=== PATIENT | female | born 1955 | race Caucasian/White ===

== ENCOUNTER 2016-05-29 19:48 | Inpatient (IN) | payer MEDICAID ==
[2016-05-29 20:50] VITALS: BP 115/55
[2016-05-29] MEDS ORDERED: Albuterol Nebulizer 2.5mg/3mL IH PRN (21:00)
[2016-05-29] MEDS ORDERED: Ipratropium Neb 0.5 mg/2.5 mL UD IH PRN (21:00)
[2016-05-29] MEDS ORDERED: guaiFENesin 200 MG/10 ML UDC PO PRN (21:00)
[2016-05-29] MEDS ORDERED: Metoclopramide 5 mg/mL 2mL Vial IVP PRN (21:06)
[2016-05-29] MEDS ORDERED: Scopolamine 1.5 mg/ 72 hr TDM TD SCH (21:15)
[2016-05-30] MEDS: D5-0.45NS 1,000 ML IV SCH ×3 (01:19→18:27)
[2016-05-30 07:29] LABS: % BASOPHILS 0.5 % (0.0-2.0); % EOSINOPHILS 0.9 % (0.0-5.0); % LYMPHOCYTES 37.5 % (20.0-50.0); % MONOCYTES 7.2 % (2.0-10.0); % NEUTROPHILS 53.9 % (40.0-80.0); HEMATOCRIT 34.3 % (35.0-45.0); HEMOGLOBIN 12.1 gm/dL (11.7-15.5); MEAN CORPUSCULAR HEMOGLOBIN 31.7 pg (27.0-31.0); MEAN CORPUSCULAR HGB CONC 35.2 pg (28.0-36.0); PLATELET COUNT 200 Th/cmm (150-400); RED BLOOD COUNT 3.81 Mil/cmm (3.80-5.10); RED CELL DISTRIBUTION WIDTH 11.9 % (11.5-20.0); WHITE BLOOD COUNT 5.6 Th/cmm (4.8-10.8)
[2016-05-30 07:46] LABS: ALB/GLOB RATIO 1.1 (1.0-1.8); ALKALINE PHOSPHATASE 40 U/L (34-104); ANION GAP 7.8 (7.0-16.0); BILIRUBIN,TOTAL 0.4 mg/dL (0.3-1.0); BUN - UREA NITROGEN 10 mg/dL (7-25); CALCIUM SERUM 8.5 mg/dL (8.6-10.3); CARBON DIOXIDE 24.7 mEq/L (21.0-31.0); CHLORIDE 107 mEq/L (98-107); CREATININE - SERUM 0.5 mg/dL (0.6-1.2); GLUCOSE 116 mg/dL (70-105); MAGNESIUM 2.2 mg/dL (1.9-2.7); POTASSIUM SERUM 3.5 mEq/L (3.5-5.1); SGOT 21 U/L (13-39); SGPT/ALT 14 U/L (7-52); SODIUM SERUM 136 mEq/L (136-145)
[2016-05-30 08:34] LABS: TSH 1.58 uIU/ml (0.34-5.60)
[2016-05-30 09:38] LABS: URINE BILIRUBIN NEGATIVE (NEGATIVE); URINE COLOR YELLOW; URINE GLUCOSE (UA) NEGATIVE (NEGATIVE); URINE KETONE TRACE mg/dL (NEGATIVE)
[2016-05-30 09:39] LABS: URINE BACTERIA NONE SEEN /hpf (NONE SEEN); URINE BLOOD NEGATIVE (NEGATIVE); URINE EPITHELIAL CELLS RARE /lpf (FEW); URINE PH 6.5; URINE PROTEIN NEGATIVE (NEGATIVE); URINE RBC NONE SEEN /hpf (0-5); URINE UROBILINOGEN 0.2 E.U./dL (0.2 - 1.0); URINE WBC 0-2 /hpf (0-5)
--- NOTE | 2016-05-30 12:53 | Diagnostic Imaging Report ---
Carotid ultrasound HISTORY: Stenosis COMPARISON: None Technique: Longitudinal and transverse sonographic sector images of the carotid arteries were obtained with doppler analysis. FINDINGS: Exam of the right side demonstrates mild generalized atherosclerotic vascular disease greatest within the carotid bulb. Exam of the left side demonstrates mild generalized atherosclerotic vascular disease, greatest within the carotid bulb. The velocity and velocity ratios are within normal limits. Antegrade vertebral artery flow is demonstrated bilaterally. IMPRESSION: Mild generalized atherosclerotic vascular disease. No evidence of hemodynamically significant stenosis.
--- NOTE | 2016-05-30 14:18 | Internal Medicine Prog Note ---
Internal Medicine Subjective - Subjective Service Date: 05/30/16 ([facility] [id number]) Internal Medicine Objective - Results Result Diagrams: 05/30/16 07:10 05/30/16 07:10 Recent Labs: Laboratory Last Values WBC 5.6 Th/cmm (4.8-10.8) 05/30/16 07:10 RBC 3.81 Mil/cmm (3.80-5.10) 05/30/16 07:10 Hgb 12.1 gm/dL (11.7-15.5) 05/30/16 07:10 Hct 34.3 % (35.0-45.0) L 05/30/16 07:10 MCV 90.0 fl (81-100) 05/30/16 07:10 MCH 31.7 pg (27.0-31.0) H 05/30/16 07:10 MCHC Differential 35.2 pg (28.0-36.0) 05/30/16 07:10 RDW 11.9 % (11.5-20.0) 05/30/16 07:10 Plt Count 200 Th/cmm (150-400) 05/30/16 07:10 MPV 8.0 fl 05/30/16 07:10 Neutrophils % 53.9 % (40.0-80.0) 05/30/16 07:10 Lymphocytes % 37.5 % (20.0-50.0) 05/30/16 07:10 Monocytes % 7.2 % (2.0-10.0) 05/30/16 07:10 Eosinophils % 0.9 % (0.0-5.0) 05/30/16 07:10 Basophils % 0.5 % (0.0-2.0) 05/30/16 07:10 Sodium 136 mEq/L (136-145) 05/30/16 07:10 Potassium 3.5 mEq/L (3.5-5.1) 05/30/16 07:10 Chloride 107 mEq/L (98-107) 05/30/16 07:10 Carbon Dioxide 24.7 mEq/L (21.0-31.0) 05/30/16 07:10 Anion Gap 7.8 (7.0-16.0) 05/30/16 07:10 BUN 10 mg/dL (7-25) 05/30/16 07:10 Creatinine 0.5 mg/dL (0.6-1.2) L 05/30/16 07:10 Est GFR ( Amer) > 60.0 ml/min 05/30/16 07:10 Est GFR (Non-Af Amer) > 60.0 ml/min 05/30/16 07:10 BUN/Creatinine Ratio 20.0 05/30/16 07:10 Glucose 116 mg/dL (70-105) H 05/30/16 07:10 Calcium 8.5 mg/dL (8.6-10.3) L 05/30/16 07:10 Magnesium 2.2 mg/dL (1.9-2.7) 05/30/16 07:10 Total Bilirubin 0.4 mg/dL (0.3-1.0) 05/30/16 07:10 AST 21 U/L (13-39) 05/30/16 07:10 ALT 14 U/L (7-52) 05/30/16 07:10 Alkaline Phosphatase 40 U/L (34-104) 05/30/16 07:10 Ammonia 53 umol/L (16-53) 05/30/16 07:10 Total Protein 6.8 gm/dL (6.0-8.3) 05/30/16 07:10 Albumin 3.6 gm/dL (3.7-5.3) L 05/30/16 07:10 Globulin 3.2 gm/dL 05/30/16 07:10 Albumin/Globulin Ratio 1.1 (1.0-1.8) 05/30/16 07:10 TSH 1.58 uIU/ml (0.34-5.60) 05/30/16 07:10 Urine Source CLEAN C 05/30/16 08:45 Urine Color YELLOW 05/30/16 08:45 Urine Clarity SL. CLOUDY (CLEAR) 05/30/16 08:45 Urine pH 6.5 05/30/16 08:45 Ur Specific [place] 1.010 (1.005-1.030) 05/30/16 08:45 Urine Protein NEGATIVE mg/dL (NEGATIVE) 05/30/16 08:45 Urine Glucose (UA) NEGATIVE mg/dL (NEGATIVE) 05/30/16 08:45 Urine Ketones TRACE mg/dL (NEGATIVE) 05/30/16 08:45 Urine Blood NEGATIVE (NEGATIVE) 05/30/16 08:45 Urine Nitrate NEGATIVE (NEGATIVE) 05/30/16 08:45 Urine Bilirubin NEGATIVE (NEGATIVE) 05/30/16 08:45 Urine Urobilinogen 0.2 E.U./dL (0.2 - 1.0) 05/30/16 08:45 Ur Leukocyte Esterase NEGATIVE (NEGATIVE) 05/30/16 08:45 Urine RBC NONE SEEN /hpf (0-5) 05/30/16 08:45 Urine WBC 0-2 /hpf (0-5) 05/30/16 08:45 Ur Epithelial Cells RARE /lpf (FEW) 05/30/16 08:45 Urine Bacteria NONE SEEN /hpf (NONE SEEN) 05/30/16 08:45 - Physical Exam Vitals and I&O: Vital Signs Temp 96.8 F 05/30/16 07:00 Pulse 82 05/30/16 07:00 Resp 18 05/30/16 07:00 BP 112/63 05/30/16 07:00 Pulse Ox 96 05/30/16 07:00 Intake & Output 05/29/16 05/30/16 05/30/16 18:59 06:59 18:59 Intake Total 746.667 Balance 746.667 Weight (lbs) 145 lb Intake: Intake, IV Amount 746.667 D5-0.45NS 1,000 ml @ 100 746.667 mls/hr IV .Q10H [facility] Rx#: [id number] Other: Stool Characteristics Soft Active Medications: Current Medications Acetaminophen (Tylenol) 650 mg PO Q4HR PRN PRN Reason: Pain or Fever >101 Stop: 07/28/16 20:59 Albuterol Sulfate (Albuterol 2.5mg/3ml Neb Ud) 2.5 mg IH Q2HR PRN PRN Reason: Shortness of Breath or Wheeze Stop: 07/28/16 20:59 Guaifenesin (Robitussin) 200 mg PO Q4HR PRN PRN Reason: Cough or Congestion Stop: 07/28/16 20:59 Heparin Sodium (Porcine) (Heparin) 5,000 units SUBQ Q12HR [facility] Stop: 07/28/16 20:59 Last Admin: 05/30/16 08:46 Dose: 5,000 units Dextrose/Sodium Chloride (D5-0.45ns) 1,000 mls @ 100 mls/hr IV .Q10H JERRI Stop: 07/28/16 20:59 Last Admin: 05/30/16 08:47 Dose: 100 mls/hr Ipratropium Johnston (Atrovent Neb 0.5mg/2.5ml) 0.5 mg IH Q2HR PRN PRN Reason: Shortness of Breath or Wheeze Stop: 07/28/16 20:59 Meclizine HCl (Antivert) 25 mg PO DAILY PRN PRN Reason: Nausea / Vomiting Stop: 07/28/16 20:59 Last Admin: 05/30/16 08:46 Dose: 25 mg Metoclopramide HCl (Reglan) 5 mg IVP Q4HR PRN PRN Reason: Dizziness Stop: 07/28/16 21:05 Ondansetron HCl (Zofran) 4 mg IV Q8H PRN PRN Reason: Nausea / Vomiting Stop: 07/28/16 20:59 Scopolamine (Transderm Scop Patch) 1 patch TD Q72H JERRI Stop: 07/28/16 21:14 Internal Medicine Assmt/Plan - Assessment Assessment: acute dizziness osteoporosis
--- NOTE | 2016-05-30 15:38 | History & Physical ---
CHIEF COMPLAINT: Dizziness. HISTORY OF PRESENT ILLNESS: This is a 60-year-old female who is a direct admission from [facility]. According to the patient, last night around 2:00 a.m., the patient stated that she woke up and she started to feel dizzy. The patient fell back asleep and woke up in the morning and she started vomiting and associated with dizziness. The patient denied any chest pain, any diarrhea, any abdominal pain. Due to insurance purposes, the patient is now here at [facility]. The patient had a CAT scan in [place] ____ and it was negative for any acute diseases. PAST MEDICAL HISTORY: Osteoporosis. PAST SURGICAL HISTORY: Cholecystectomy and ovarian cyst removal. ALLERGIES: No drug allergies. FAMILY HISTORY: Noncontributory. REVIEW OF SYSTEMS: GENERAL: Denies any fever, any chills. CARDIOVASCULAR: Denies any chest pain. RESPIRATORY: Denies any shortness of breath. GASTROINTESTINAL: Denies any nausea, vomiting at this time or any abdominal pain. GENITOURINARY: She denies any dysuria. All other systems are reviewed by me are negative. PHYSICAL EXAMINATION: GENERAL: The patient is well developed, well nourished, no acute distress. VITAL SIGNS: Temperature 96.8, heart rate 66, blood pressure 112/63, respirations 18, O2 95%. HEENT: Head; normocephalic, atraumatic. NECK: Supple. No mass. LUNGS: Clear bilaterally upon auscultation. HEART: Regular rate and rhythm. No murmurs or gallops. SKIN: Intact, warm and dry to touch. ABDOMEN: Soft, nontender, nondistended. Positive bowel sounds in all 4 quadrants. LABORATORY DATA: WBC 5.6, H and H 12.1 and 34.3, platelets of 200. Sodium 136, potassium ____, BUN 10, creatinine 0.5, albumin 3.6. DIAGNOSTICS: The patient had a carotid ultrasound and the impression is mild degenerative atherosclerotic vascular disease, no evidence of hemodynamically significant stenosis. PLAN: The patient to be admitted to the med/surg unit. The patient will have a consultation with Dr. Zuniga. We will monitor patient's electrolytes levels. Fall precautions will be initiated. PRN Zofran. We will continue to monitor the patient. JOB# [id number]
--- NOTE | 2016-05-30 23:56 | Admit Criteria Form ---
Admit Criteria Forms - Admit Criteria Diagnosis: DIZZINESS Clinical Indications for Admission to Inpatient Care (Place 'X' for any and all applicable criteria): Admission is indicated for ANY ONE of the following(1)(2)(3)(4): [ x]I. Inpatient admission required rather than observation care (Also use Dizziness: Observation Care as appropriate) because of ANY ONE of the following: [ ]a) Hemodynamic instability that is severe or persistent [ ]b) Signs or symptoms that are severe or persistent (eg, vomit, orthostasis, inability to ambulate) [ ]c) Cardiac arrhythmias of immediate concern [ ]d) Severe (new) neurologic findings requiring inpatient care as indicated by ANY ONE of the following(6)(7): [ ]1) Cerebral bleeding, ischemia, or vasospasm(8)(9) [ ]2) Increased intracranial pressure or hydrocephalus(10)(11)(12) [ ]3) Papilledema [ ]4) Cerebral edema [ ]5) Mass effect on CT scan [ ]e) Continuous IV infusion of anticoagulation, platelet inhibitor, vasoactive, or antiarrhythmic medication [ ]f) Cerebral bleeding, hydrocephalus, or vasospasm monitoring(14) [ ]g) Increased intracranial pressure or cerebral edema monitoring [ ]h) Vomiting that is severe or persistent [x ]i) Other condition, treatment or monitoring requiring inpatient admission [ ]II. A suspected etiology that requires admission for treatment [ ]III. Acute bacterial labyrinthitis [ ]IV. Cerebellar, brainstem, or cerebral ischemia or hemorrhage (5) Extended stay beyond goal length of stay may be needed for evaluating and treating a specific cause of dizziness, including(32) [ ]a) Head injury (Also use Traumatic Brain Injury, Nonsurgical Treatment guideline) [ ]b) New-onset vertebrobasilar vascular insufficiency [ ]c) Acute Meniere disease with intractable symptoms [ ]d) Cardiac arrhythmias or conduction defects [ ]e) Acute neurologic event causing dizziness [ ]f) Myocardial ischemia [ ]g) Acute bacterial labyrinthitis. [ ]h) Severe acute vestibular neuronitis The original [facility] [employer] content created by [facility] [employer] has been revised. The portions of the content which have been revised are identified through the use of italic text or in bold, and [facility] has neither reviewed nor approved the modified material. All other unmodified content is copyright [facility]. Please see references footnoted in the original [facility] edition 2016 Admit Criteria Met?: Yes
[2016-05-31] MEDS: D5-0.45NS 1,000 ML IV SCH (06:03)
[2016-05-31 07:33] LABS: % BASOPHILS 0.9 % (0.0-2.0); % EOSINOPHILS 1.9 % (0.0-5.0); % LYMPHOCYTES 38.7 % (20.0-50.0); % MONOCYTES 7.3 % (2.0-10.0); % NEUTROPHILS 51.2 % (40.0-80.0); HEMOGLOBIN 12.8 gm/dL (11.7-15.5); MEAN CELL VOLUME 91.6 fl (81-100); MEAN CORPUSCULAR HEMOGLOBIN 31.6 pg (27.0-31.0); MEAN CORPUSCULAR HGB CONC 34.5 pg (28.0-36.0); MEAN PLATELET VOLUME 8.1 fl; NEUTROPHILE ABSOLUTE 2.4 Th/cmm (1.8-8.0); PLATELET COUNT 197 Th/cmm (150-400); RED BLOOD COUNT 4.03 Mil/cmm (3.80-5.10); RED CELL DISTRIBUTION WIDTH 12.3 % (11.5-20.0); WHITE BLOOD COUNT 4.6 Th/cmm (4.8-10.8)
[2016-05-31 07:54] LABS: BUN - UREA NITROGEN 10 mg/dL (7-25); BUN/CREATININE RATIO 16.7; CALCIUM SERUM 8.6 mg/dL (8.6-10.3); CARBON DIOXIDE 24.6 mEq/L (21.0-31.0); CHLORIDE 109 mEq/L (98-107); CREATININE - SERUM 0.6 mg/dL (0.6-1.2); GLUCOSE 111 mg/dL (70-105); POTASSIUM SERUM 3.6 mEq/L (3.5-5.1); SODIUM SERUM 137 mEq/L (136-145)
--- NOTE | 2016-05-31 10:14 | Consultation ---
HISTORY OF PRESENT ILLNESS: The patient is a 60-year-old. The patient complains of dizziness for the last couple of days. The patient had complained, got up and felt that the patient vision was not clear, was not exactly diplopia, but was slanted to one side. She tried to get up. She was wearing off to one side. She felt severe dizziness and then she started having nausea, vomiting. The vision seems to be better, although she still feels when she tries to get that she would tend to wear off to one side. She feels dizziness ____ with movement, otherwise, while in bed, not too bad. Not much episodes of dizziness in the past. No marked weakness on one side or the other. Some numbness in the face, better. PAST MEDICAL HISTORY: The patient is otherwise generally healthy, no other major medical problems. She has osteoporosis. PAST SURGICAL HISTORY: Gallbladder, ovarian cyst. ALLERGIES: None known. REVIEW OF SYSTEMS: On questioning, a 12-point negative except for above. PHYSICAL EXAMINATION: VITAL SIGNS: Temperature 98.2, blood pressure 120/67, pulse is around about 68. NECK: Supple. No bruits. HEART: Sounds S1, S2. LUNGS: Clear. ABDOMEN: Soft. NEUROLOGIC: The patient awake, alert. She speaks Albanian, family by the bedside. CRANIAL: Pupils react to light. Full eye movement. No nystagmus. Slight endpoint, may be looking to the right and left. Face normal. MOTOR: She will lift both arms up. [id number] is okay. The patient's gait not tested. Reflexes are 1-2+. INVESTIGATIONS: Apparently, CT scan was reported to be negative. Carotid ultrasound showed some plaquing, but no stenosis. IMPRESSION: Vertigo. Differential, vestibular versus [employer]. In view of some symptoms, especially with some visual complaints initially ataxia, I am going to go ahead and do an MRI of the brain. Treat vertigo symptomatically. JOB# [id number]
[2016-05-31 10:18] LABS: FOLIC ACID >20.0 ng/mL (>3.0)
--- NOTE | 2016-05-31 12:40 | Diagnostic Imaging Report ---
MRI Brain without intravenous Contrast Indication: Ataxia, vertigo Comparison: none Technique: Multiplanar T1, T2, FLAIR, GRE and diffusion weighted images of the brain were obtained without intravenous contrast.. Findings: Images of the brain obtained without contrast demonstrate no evidence of an acute hemorrhage. There is no evidence of restricted diffusion to suggest acute infarction. Minimal white matter disease is noted. The ventricles and basal cisterns are patent. No mass effect or midline shift. No mass lesions identified. The vascular flow voids are preserved. The visualized paranasal sinuses are clear. IMPRESSION: No acute intracranial abnormality. Minimal supratentorial white matter disease which is nonspecific and may be sequela of chronic microvessel ischemia.
[2016-05-31] MEDS ORDERED: Magnesium Hydroxide (MOM) 30 mL UDC PO ONE (16:10)
--- NOTE | 2016-06-12 15:31 | Discharge Summary ---
FINAL DIAGNOSES: Acute dizziness and osteoporosis, vomitting HISTORY OF PRESENT ILLNESS: This is a 60-year-old female who was a direct [facility]. According to the patient, last night around 2:00 a.m., the patient stated that she woke up and she started to feel dizzy. The patient fell back asleep and woke up in the morning. She started vomiting associated with dizziness. The patient denied any chest pain, any diarrhea, any abdominal pain. Due to insurance purposes, the patient was transferred to [facility]. PHYSICAL EXAMINATION: GENERAL: The patient is well developed, well nourished, no acute distress. VITAL SIGNS: Stable. HEENT: Head: Normocephalic, atraumatic. NECK: Supple. No mass. LUNGS: Clear bilaterally upon auscultation. CARDIOVASCULAR: Regular rhythm. No murmurs, no gallops. SKIN: Intact. Warm and dry to touch. ABDOMEN: Soft, nontender, nondistended. Positive bowel sounds in all 4 quadrants. PLAN: During the hospital stay, the patient was admitted to the med/surg unit. The patient had a consultation with Dr. Zuniga. Dr. Zuniga's plan of care was to get an MRI of the brain. MRI of the brain was obtained and the impression is no acute intracranial abnormality. LABORATORY DATA: The patient had a carotid ultrasound done and the impression is mild degenerative atherosclerotic vascular disease. No evidence of hemodynamically significant stenosis. The patient's electrolyte levels are being monitored as well and these are all within normal limits. The patient was stable for discharge. CONDITION UPON DISCHARGE: Fair. DISPOSITION: The patient is going home. JOB# [id number] [facility]
== END 2016-05-31 18:30 | disposition home or self-care (01) | DRG 111 ==
LOC: MSI 19:48
PROVIDERS: ADMIT Internal Medicine; ATTEND Internal Medicine
DX: R42 Dizziness and giddiness (principal); I65.21 Occlusion and stenosis of right carotid artery; M81.0 Age-related osteoporosis without current pathological fracture; Z90.49 Acquired absence of other specified parts of digestive tract
CPT/HCPCS: 36415-UA; 80048-TC; 80053-TC; 81001-TC; 82140-TC; 82607-90; 82746-90; 83735-TC; 84443-TC; 85025-TC; 85652-TC; 93880-TC; 94760; J1644; J7042; Z7610-TC